=== PATIENT | female | born 1995 | race Caucasian/White ===

== ENCOUNTER 2019-01-19 06:19 | Day surgery (SDC) | payer BC, OTHER ==
[~2019-01-19 06:19] MED LIST: Dextrose 5%-0.45% NaCl 1,000 ML IV SCH; Midazolam 1 MG/ML 2 ML SDV ONE; Sodium Chloride 0.9% 10 ML Syringe FLUSH PRN; fentaNYL 100 MCG/2 ML SDV ONE
[2019-01-19] MEDS ORDERED: fentaNYL 100 MCG/2 ML SDV IV ONE ×5 (06:20→08:39)
[2019-01-19] MEDS ORDERED: Midazolam 1 MG/ML 2 ML SDV IV ONE ×7 (06:20→08:37)
--- NOTE | 2019-01-19 13:35 | OR ---
DATE: 01/19/2019 PROCEDURE: Total colonoscopy. INSTRUMENT USED: PCF-H190DL Olympus video colonoscope. PREMEDICATIONS: Fentanyl 125 mcg intravenous, Versed 4 mg intravenous, and nasal O2 cannula. The procedure was done under pulse oximetry, BP recording, and quality assurance monitor body. INDICATION: The patient with persistent multiple lower abdominal symptoms, unexplained and not responsive to medical measures. Colonoscopic examination is done for detection of any polypoid lesions and removal, any evidence of colitis by macroscopic examination, endoscopic hemostasis therapy if needed. DESCRIPTION OF PROCEDURE: Initial rectal exam was unremarkable. Rigid anoscopy was normal. The colonoscope was passed with ease up to the ileocecal area. Photographs were taken of the normal-appearing cecum identified by double-bulged ileocecal folds. No bleeding was noted from any of the visualized areas at the commencement of the examination. The bowel preparation was found to be adequate, Verbank scale 2 in all the regions. No stricture. No vascular ectasia. No large isolated ulcerations seen. No evidence of diffuse inflammatory bowel disease in the form of friability, contact bleeding, or ulcerations. No polyp or tumor mass identified. Probing the proximal sides of the folds and flexures using adequate distention and clearing up the stool material, withdrawal of the scope was made, cecum to rectum time over 6 minutes. No bleeding was noted from any of the visualized areas at the completion of examination. IMPRESSION: Normal study. The patient tolerated the procedure well. [facility] /[id number]
== END 2019-01-19 10:50 | disposition home or self-care (01) ==
LOC: DL.ENDO 06:19
PROVIDERS: ATTEND Internal Medicine Gastroenterology
DX: K59.00 Constipation, unspecified (principal); R19.7 Diarrhea, unspecified; R10.9 Unspecified abdominal pain; Z91.030 Bee allergy status
CPT/HCPCS: 45378; J2250; J3010; J7042; G0121

== ENCOUNTER 2022-11-22 09:15 | Emergency (ER) | payer BC, OTHER ==
[2022-11-22] MEDS ORDERED: Sodium Chloride 0.9% 10 ML Syringe FLUSH PRN (09:22)
[2022-11-22 09:38] LABS: BASOPHILS PERCENT AUTO 0.2 % (0.0-1.0); EOSINOPHILS PERCENT AUTO 0.8 % (1.0-3.0); HEMATOCRIT 39.9 % (37.0-47.0); HEMOGLOBIN 13.6 g/dL (12.0-16.0); LYMPHOCYTES PERCENT AUTO 20.5 % (20.5-50.1); MEAN CORPUSCULAR HEMOGLOBIN 29.9 pg (27.0-34.0); MEAN CORPUSCULAR HGB CONC 34.1 g/dL (33.0-35.0); MEAN CORPUSCULAR VOLUME 87.7 fL (80-100); MONOCYTES PERCENT AUTO 5.8 % (2-8); NEUTROPHILS PERCENT AUTO 72.7 % (42.2-75.2); PLATELET COUNT,PLT 325 10^3/uL (150-450); RED BLOOD CELL COUNT 4.55 10^6/uL (4.2-5.4); WHITE BLOOD CELL COUNT,WBC 13.2 10^3/uL (5.0-10.0)
[2022-11-22 09:49] LABS: APPEARANCE,URINE SLIGHTLY CLOUDY (CLEAR); BILIRUBIN,URINE NEGATIVE (NEGATIVE); COLOR,URINE YELLOW (YELLOW); GLUCOSE,URINE NEGATIVE (NEGATIVE); KETONES,URINE NEGATIVE (NEGATIVE); LEUKOCYTE ESTERASE,URINE SMALL (NEGATIVE); NITRITE,URINE NEGATIVE (NEGATIVE); OCCULT BLOOD,URINE MODERATE (NEGATIVE); PH,URINE 7.5 (5.0-9.0); PROTEIN,URINE NEGATIVE (NEGATIVE); UROBILINOGEN,URINE 0.2 mg/dL (0.2-1.0)
[2022-11-22 10:02] LABS: BACTERIA,URINE MODERATE /HPF (0-FEW/HPF); EPITHELIAL CELLS,URINE MANY /HPF (NOT SEEN); MUCUS,URINE RARE /LPF (NOT SEEN); WBC,URINE 0-5 /HPF (0-5/HPF)
[2022-11-22 10:08] LABS: A/G RATIO 0.9; ALBUMIN 3.7 g/dL (3.4-5.0); ANION GAP 11.8 mEq/L (7-13); BILIRUBIN TOTAL 0.4 mg/dL (0.2-1.0); CREATININE 0.67 mg/dL (0.55-1.02); EST CRCL DRUG DOSING (CG) 103.41 mL/min; INR 0.8 (0.9-1.2); POTASSIUM,K 3.8 mmol/L (3.5-5.1); PROTEIN TOTAL,TP 7.6 g/dL (6.4-8.2); PROTHROMBIN TIME 8.7 SEC (9.0-12.0); PTT,PARTIAL THROMBOPLSTIN TIME 27.3 SEC (22.0-34.0)
== END 2022-11-22 11:17 | disposition home or self-care (01) ==
LOC: DL.ED 09:15
DX: O20.9 Hemorrhage in early pregnancy, unspecified (principal); O23.41 Unspecified infection of urinary tract in pregnancy, first trimester; N39.0 Urinary tract infection, site not specified; E66.9 Obesity, unspecified; Z68.33 Body mass index [BMI] 33.0-33.9, adult; Z3A.12 12 weeks gestation of pregnancy; Z86.16 Personal history of COVID-19; Z91.030 Bee allergy status
CPT/HCPCS: 36415; 76801; 80053; 81001; 81003; 84702; 85025; 85610; 85730; 87086; 99284

== ENCOUNTER 2023-05-25 08:29 | Inpatient (IN) | payer BC, OTHER ==
[2023-05-25] MEDS ORDERED: Lactated Ringers 1,000 ML IV ONE (10:03)
[2023-05-25 10:09] LABS: HEMATOCRIT 37.2 % (37.0-47.0); HEMOGLOBIN 12.2 g/dL (12.0-16.0); MEAN CORPUSCULAR HEMOGLOBIN 29.6 pg (27.0-34.0); MEAN CORPUSCULAR HGB CONC 32.8 g/dL (33.0-35.0); MEAN CORPUSCULAR VOLUME 90.3 fL (80-100); RED BLOOD CELL COUNT 4.12 10^6/uL (4.2-5.4); WHITE BLOOD CELL COUNT,WBC 12.4 10^3/uL (5.0-10.0)
[2023-05-25] MEDS ORDERED: Carboprost Tromethamine 250 MCG/1 ML Amp IM PRN (10:13)
[2023-05-25] MEDS ORDERED: Lidocaine 1% 30 ML SDV INJECT ONE (10:13)
[2023-05-25] MEDS ORDERED: Sodium Chloride 0.9% 10 ML Syringe FLUSH PRN (10:13)
[2023-05-25] MEDS ORDERED: Tranexamic Acid 1,000 MG in Sodium Chloride 0.9% 100 ML IV PRN (10:13)
[2023-05-25] MEDS ORDERED: Acetaminophen 325 MG Tab PO PRN (10:13)
[2023-05-25] MEDS ORDERED: Ondansetron 4 MG/2 ML SDV IVPUSH PRN (10:13)
[2023-05-25] MEDS ORDERED: Methylergonovine 0.2 MG/1 ML Amp IM PRN (10:13)
[2023-05-25] MEDS ORDERED: fentaNYL 100 MCG/2 ML SDV IVPUSH PRN (10:13)
[2023-05-25] MEDS ORDERED: Misoprostol 400 MCG (4 X 100 MCG TAB) RECTAL PRN (10:13)
[2023-05-25] MEDS: Oxytocin/Normal Saline 30 UNIT/500 ML BAG IV SCH (11:15)
[2023-05-25] MEDS: Lactated Ringers 1,000 ML IV SCH ×2 (11:15→17:32)
[2023-05-26] MEDS ORDERED: Bupivacaine 0.25% 10 ML SDV ONE (00:17)
[2023-05-26] MEDS ORDERED: fentaNYL 100 MCG/2 ML SDV ONE (00:17)
[2023-05-26] MEDS ORDERED: ePHEDrine 50 MG/ML SDV IVPUSH PRN ×2 (00:46→09:32)
[2023-05-26] MEDS ORDERED: Phenylephrine HCl In 0.9% NaCl 1 MG/10 ML Syringe IVPUSH PRN (00:46)
[2023-05-26] MEDS: Lactated Ringers 1,000 ML IV SCH ×4 (01:00→19:45)
[2023-05-26] MEDS ORDERED: Ropivacaine 200 MG in Premix Bag 1 BAG EPIDUR SCH (01:00)
[2023-05-26] MEDS ORDERED: Oxytocin/Normal Saline 30 UNIT/500 ML BAG ONE (04:51)
[2023-05-26] MEDS ORDERED: Oxytocin 10 Units/1 ML SDV IM PRN (05:05)
[2023-05-26] MEDS ORDERED: Carboprost Tromethamine 250 MCG/1 ML Amp IM PRN (05:05)
[2023-05-26] MEDS ORDERED: Methylergonovine 0.2 MG Tab PO PRN (05:05)
[2023-05-26] MEDS ORDERED: Tranexamic Acid 1,000 MG in Sodium Chloride 0.9% 100 ML IV PRN (05:05)
[2023-05-26] MEDS ORDERED: ceFAZolin 2 GM Vial IVPUSH ONE (05:05)
[2023-05-26] MEDS ORDERED: Oxytocin 10 Units/1 ML SDV ONE (05:12)
[2023-05-26] MEDS ORDERED: Lidocaine 2% with EPINEPHrine 1:200,000 20 ML SDV ONE (05:12)
[2023-05-26] MEDS ORDERED: ceFAZolin 2 GM Vial ONE (05:12)
[2023-05-26] MEDS: Oxytocin/Normal Saline 30 UNIT/500 ML BAG IV SCH (06:30)
[2023-05-26] MEDS ORDERED: diphenhydrAMINE 50 MG/ML SDV IVPUSH PRN (09:32)
[2023-05-26] MEDS ORDERED: Ondansetron 4 MG/2 ML SDV IVPUSH PRN (09:32)
[2023-05-26] MEDS ORDERED: Naloxone 2 MG/2 ML Syringe IVPUSH PRN (09:32)
[2023-05-26] MEDS ORDERED: Acetaminophen/oxyCODONE 325-5 MG Tab PO PRN (09:32)
[2023-05-26] MEDS: Ferrous Sulfate 325 MG Tab PO SCH (11:17)
[2023-05-26] MEDS: Simethicone 80 MG Tab.Chew PO SCH ×4 (11:18→21:25)
[2023-05-26] MEDS: Prenatal Multivitamin with Calcium/Folic Acid/Iron Tab PO SCH (11:18)
[2023-05-26] MEDS: Ketorolac 30 MG/ML SDV IVPUSH SCH ×2 (12:05→17:55)
[2023-05-26] MEDS ORDERED: Promethazine 25 MG/ML SDV IM ONE (12:38)
[2023-05-26] MEDS: Docusate Sodium 100 MG Cap PO PRN (21:25)
[2023-05-27] MEDS: Ketorolac 30 MG/ML SDV IVPUSH SCH (00:22)
[2023-05-27] MEDS: Lactated Ringers 1,000 ML IV SCH (04:34)
[2023-05-27 05:59] LABS: HEMATOCRIT 26.5 % (37.0-47.0); HEMOGLOBIN 8.4 g/dL (12.0-16.0); MEAN CORPUSCULAR HEMOGLOBIN 29.7 pg (27.0-34.0); MEAN CORPUSCULAR HGB CONC 31.7 g/dL (33.0-35.0); MEAN CORPUSCULAR VOLUME 93.6 fL (80-100); RED BLOOD CELL COUNT 2.83 10^6/uL (4.2-5.4); WHITE BLOOD CELL COUNT,WBC 16.9 10^3/uL (5.0-10.0)
[2023-05-27] MEDS: Prenatal Multivitamin with Calcium/Folic Acid/Iron Tab PO SCH (08:38)
[2023-05-27] MEDS: Ibuprofen 800 MG Tab PO PRN ×2 (08:38→17:05)
[2023-05-27] MEDS: Ferrous Sulfate 325 MG Tab PO SCH (08:38)
[2023-05-27] MEDS: Simethicone 80 MG Tab.Chew PO SCH ×4 (08:38→21:35)
[2023-05-27] MEDS: Acetaminophen/oxyCODONE 325-5 MG Tab PO PRN (19:38)
[2023-05-27] MEDS: Docusate Sodium 100 MG Cap PO PRN (19:38)
[2023-05-28] MEDS: Ibuprofen 800 MG Tab PO PRN ×2 (00:47→08:56)
[2023-05-28] MEDS: Prenatal Multivitamin with Calcium/Folic Acid/Iron Tab PO SCH (08:09)
[2023-05-28] MEDS: Simethicone 80 MG Tab.Chew PO SCH (08:09)
[2023-05-28] MEDS: Ferrous Sulfate 325 MG Tab PO SCH (08:09)
[2023-05-28] MEDS: Docusate Sodium 100 MG Cap PO PRN (08:09)
[2023-05-28] MEDS: Acetaminophen/oxyCODONE 325-5 MG Tab PO PRN (09:56)
== END 2023-05-28 14:00 | disposition home or self-care (01) | DRG 787 ==
LOC: DL.OBCHECK 08:29 → DL.OB 08:51 → OBSVTOIN 05-26 05:44
PROVIDERS: ADMIT Family Medicine; ATTEND Family Medicine
PROC: 3E033VJ Introduction of Other Hormone into Peripheral Vein, Percutaneous Approach (ICD-10-PCS; 2023-05-26)
PROC: 10H07YZ Insertion of Other Device into Products of Conception, Via Natural or Artificial Opening (ICD-10-PCS; 2023-05-26)
PROC: 10D00Z1 Extraction of Products of Conception, Low, Open Approach (ICD-10-PCS; principal; 2023-05-26 05:30)
DX: O42.02 Full-term premature rupture of membranes, onset of labor within 24 hours of rupture (principal); O75.2 Pyrexia during labor, not elsewhere classified; O36.63X0 Maternal care for excessive fetal growth, third trimester, not applicable or unspecified; Z37.0 Single live birth; O62.1 Secondary uterine inertia; O76 Abnormality in fetal heart rate and rhythm complicating labor and delivery; Z3A.38 38 weeks gestation of pregnancy; O33.9 Maternal care for disproportion, unspecified
CPT/HCPCS: 01967; 36415; 51702; 59025; 85027; 86850; 86900; 86901; 94010; A9270-GY; J1885; J2405; J2550; J2590; J7120